=== PATIENT | female | born 1945 | race Caucasian/White ===

== ENCOUNTER 2024-10-20 02:45 | Emergency (ER) | payer MEDICARE, OTHER, SELFPAY ==
[2024-10-20 02:46] VITALS: BP 159/92; PULSE 93; RESP 16; TEMP 36.2; O2SAT 100
[2024-10-20 03:42] VITALS: BP 148/78; PULSE 76; PULSE 77; RESP 13; TEMP 36.6; O2SAT 98
[2024-10-20 03:44] LABS: Basophils Percent Auto 0.4 % (0.2-1.2); Eosinophils Absolute Auto 0.2 K/mm3 (0-0.3); Hematocrit 41.3 % (37.0-47.0); Hemoglobin 13.7 g/dL (12.0-15.0); Immature Granulocyte Absolute 0.01 K/mm3 (0.00-0.031); Immature Granulocyte Percent A 0.2 % (0-0.5); Lymphocytes Absolute Auto 1.52 K/mm3 (0.9-3.2); Lymphocytes Percent Auto 28.7 % (18.3-44.2); Mean Corpuscular HGB Conc 33.2 g/dl (32-36); Mean Corpuscular Hemoglobin 30.8 pg (26-34); Mean Corpuscular Volume 92.8 fl (80-100); Mean Platelet Volume 9.6 fl (7.4-10.4); Monocytes Absolute Auto 0.4 K/mm3 (0.1-0.6); Monocytes Percent Auto 6.8 % (2.6-8.5); Neutrophils Absolute Auto 3.2 K/mm3 (1.3-6.7); Neutrophils Percent Auto 60.9 % (45.5-73.1); Platelet Count Result 229 k/mm3 (150-375); Red Blood Count 4.45 M/mm3 (4.2-5.4); Red Cell Distribution Width 12.9 % (11.5-14.5); White Blood Count 5.3 K/mm3 (4.5-10.0)
[2024-10-20 03:55] LABS: Alanine Aminotransferase 20 U/L (6-35); Albumin Level 4.4 g/dL (3.5-5.1); Alkaline Phosphatase 71 U/L (38-126); Anion Gap 11 mmol/L (4-12); Aspartate Amino Transferase 25 U/L (14-36); Bilirubin,Total 0.4 mg/dL (0.2-1.3); Blood Urea Nitrogen 12 mg/dL (7-17); Calcium 9.1 mg/dL (8.4-10.2); Carbon Dioxide 24 mmol/L (22-30); Chloride 104 mmol/L (98-107); Estimated Glomerular Filt Rate > 60; Glucose 102 mg/dL (65-110); Magnesium 1.8 mg/dL (1.6-2.3); Potassium 3.6 mmol/L (3.4-5.0); Sodium 139 mmol/L (137-145)
[2024-10-20 03:58] VITALS: BP 127/85; PULSE 74; RESP 14; O2SAT 97
[2024-10-20 04:06] LABS: Troponin I < 0.012 ng/mL (0.000-0.034)
--- NOTE | 2024-10-20 04:35 | ED.GENADULT ---
HPI - General Adult General Chief complaint: Unspecified Stated complaint: high blood pressure, covid + Time Seen by Provider: 10/20/24 03:04 History of Present Illness HPI narrative: Patient is a 79-year-old female who presents emergency department this morning complaining of heart palpitations and elevated blood pressure. Patient states that she tested positive for COVID on October 15 and her doctor started her on proximal right away. Patient then called her PCP yesterday to inform him at that her blood pressure has been running high with a systolic as high as 180 and her PCP instructed her to stop taking the Paxil of it. Patient states that she takes 12.5 mg of metoprolol in the evening for her blood pressure. States that at 1 point in the she was diagnosed with atrial fibrillation but she was taken off of blood thinners and informed that she no longer needed and states that she has been in sinus rhythm since. Does see a rug setter [place] through [facility] regularly. Patient states that she has been noticing that her heart rate has been running around 105 and she can feel her heart beats which was concerning for her so she decided to come to the emergency department for further evaluation. Currently denying any chest pain or shortness of breath. No additional symptoms or concerns at this time. Related Data Allergies Allergy/AdvReac Type Severity Reaction Status Date / Time Sulfa (Sulfonamide AdvReac Mild Nausea and Verified 10/20/24 02:53 Antibiotics) Vomiting Review of Systems Review of Systems: All systems are reviewed and are negative unless stated otherwise in the HPI. Exam Narrative: General: Alert, awake, afebrile, in no acute distress. HEENT: PERRL, no rhinorrhea, no post nasal drip, oropharynx clear. Neck: Trachea midline, no JVD, no lymphadenopathy. Cardiovascular: Regular rate and rhythm, no murmurs, rubs or gallops, no peripheral edema. Respiratory: Clear to auscultation bilaterally, no tachypnea, no wheezing, no rhonchi, no rubs, no respiratory distress. Abdomen: Soft, nontender, nondistended, no rebound, no guarding, no peritoneal signs. Musculoskeletal: No joint swelling or deformity, normal muscle tone. Skin: No rashes or petechia, no signs of infection. Psychiatric: Alert and oriented, normal behavior and judgment for situation. Neurological: Alert and oriented to person, place, and time. Follows all commands. No focal deficits, speech is clear and fluent. Course Vital Signs Vital signs: Vital Signs Temperature 97.2 F L 10/20/24 02:46 Pulse Rate 93 10/20/24 02:46 Respiratory Rate 16 10/20/24 02:46 Blood Pressure 159/92 H 10/20/24 02:46 Pulse Oximetry 100 10/20/24 02:46 Oxygen Delivery Room Air 10/20/24 02:46 Temperature 97.9 F 10/20/24 03:42 Pulse Rate 74 10/20/24 03:58 Respiratory Rate 14 10/20/24 03:58 Blood Pressure 127/85 10/20/24 03:58 Pulse Oximetry 97 10/20/24 03:58 Oxygen Delivery Room Air 10/20/24 03:42 Medical Decision Making MDM Narrative Medical decision making narrative: The patient was evaluated by myself in the emergency department. History is obtained from patient who is an independent historian and physical exam was performed. External medical records were reviewed at this time. IV was established and pertinent tests were ordered. EKG was obtained which revealed sinus rhythm rate of 78 beats per minute. No ST changes, T wave inversions or evidence of acute ischemia. EKG was independently interpreted by me and is currently pending official cardiology read. Laboratory results obtained revealing no acute process. Imaging studies obtained included CXR which was independently interpreted by me revealing no acute cardiopulmonary process, which is pending final radiology interpretation. Differential diagnosis considerations include acute viral syndrome, electrolyte derangements, dehydration, medication side effect. Comorbidities impacting this visit include recent COVID infection. I have evaluated and discussed social determinants of health with the patient that could potentially impact subsequent diagnosis and treatment plans. On repeat assessment of the patient, reevaluation revealed that the patient is doing well and is in no acute distress. Patient symptoms have improved since she arrived to our emergency department. Repeat vital signs were all reviewed and noted to be stable. Differential diagnosis and treatment plan were discussed with the patient at bedside. Patient agrees with discussion and after shared medical decision making agrees with discharge. All questions were answered to the patient's satisfaction. Patient will follow up with your PCP in 3-5 days. Patient was provided with strict return precautions and instructed to return to the emergency department if any new or worsening symptoms develop. The patient was discharged in stable condition. Vital Signs Vital Signs: Vital Signs Temperature 97.2 F L 10/20/24 02:46 Pulse Rate 93 10/20/24 02:46 Respiratory Rate 16 10/20/24 02:46 Blood Pressure 159/92 H 10/20/24 02:46 Pulse Oximetry 100 10/20/24 02:46 Oxygen Delivery Room Air 10/20/24 02:46 Temperature 97.9 F 10/20/24 03:42 Pulse Rate 74 10/20/24 03:58 Respiratory Rate 14 10/20/24 03:58 Blood Pressure 127/85 10/20/24 03:58 Pulse Oximetry 97 10/20/24 03:58 Oxygen Delivery Room Air 10/20/24 03:42 Lab Data 10/20/24 03:33 10/20/24 03:33 Labs: Lab Results 10/20/24 Range/Units 03:33 WBC 5.3 (4.5-10.0) K/mm3 RBC 4.45 (4.2-5.4) M/mm3 Hgb 13.7 (12.0-15.0) g/dL Hct 41.3 (37.0-47.0) % MCV 92.8 (80-100) fl MCH 30.8 (26-34) pg MCHC 33.2 (32-36) g/dl RDW 12.9 (11.5-14.5) % Plt Count 229 (150-375) k/mm3 MPV 9.6 (7.4-10.4) fl Immature Gran % (Auto) 0.2 (0-0.5) % Neut % (Auto) 60.9 (45.5-73.1) % Lymph % (Auto) 28.7 (18.3-44.2) % Frontier % (Auto) 6.8 (2.6-8.5) % Eos % (Auto) 3.0 (0-4.4) % Baso % (Auto) 0.4 (0.2-1.2) % Lymph # (Auto) 1.52 (0.9-3.2) K/mm3 Frontier # (Auto) 0.4 (0.1-0.6) K/mm3 Eos # (Auto) 0.2 (0-0.3) K/mm3 Baso # (Auto) 0.0 (0.0-0.1) K/mm3 Abs Immat Gran (auto) 0.01 (0.00-0.031) K/mm3 Absolute Neuts (auto) 3.2 (1.3-6.7) K/mm3 Absolute Nucleated RBC 0.000 (0.0-0.012) K/mm3 Nucleated RBC % 0.0 (0.0-0.2) % Sodium 139 (137-145) mmol/L Potassium 3.6 (3.4-5.0) mmol/L Chloride 104 (98-107) mmol/L Carbon Dioxide 24 (22-30) mmol/L Anion Gap 11 (4-12) mmol/L BUN 12 (7-17) mg/dL Creatinine 0.62 L (0.7-1.0) mg/dL Estim Creat Clear Calc Not Reportable Estimated GFR > 60 (59 - ) Glucose 102 (65-110) mg/dL Calcium 9.1 (8.4-10.2) mg/dL Magnesium 1.8 (1.6-2.3) mg/dL Total Bilirubin 0.4 (0.2-1.3) mg/dL AST 25 (14-36) U/L ALT 20 (6-35) U/L Alkaline Phosphatase 71 (38-126) U/L Troponin I < 0.012 (0.000-0.034) ng/mL Total Protein 8.0 (6.3-8.2) g/dL Albumin 4.4 (3.5-5.1) g/dL Discharge Plan Discharge Clinical Impression: Heart palpitations, COVID-19, Hypertension Patient Disposition: Home, Self-Care Condition: Improved Instructions: Antibiotic Form, Heart Palpitations (DC), Viral Syndrome (ED) Additional Instructions: Please follow-up with your family doctor/rug setter [place] within the next 3-5 days. Return to the ED if any new or worsening symptoms develop. Your instructed to maintain your oral hydration by drinking lots of fluids. Monitor your blood pressure at home by checking your blood pressure twice daily, same time every day in the morning and same time every day at night for the next 1-2 weeks, if your blood pressure stays persistently elevated you may need to have your blood pressure medications to be adjusted by your family doctor. Patient Language: Indonesian Follow-up/Referrals: Rosy Gage DO [Physician] - 3 Days UNKNOWN,DOCTOR [Primary Care Provider] - Time of Disposition: 04:34
[2024-10-20 04:45] VITALS: BP 159/80; PULSE 73; RESP 16; O2SAT 96
[2024-10-20 04:55] VITALS: BP 125/82; PULSE 75; RESP 13; O2SAT 97
== END 2024-10-20 05:05 | disposition home or self-care (01) ==
PROVIDERS: Emergency Provider Emergency Medicine
DX: U07.1 COVID-19 (principal); R00.2 Palpitations; I10 Essential (primary) hypertension
CPT/HCPCS: 36415; 71045; 80053; 83735; 84484; 85025; 93005; 99284